=== PATIENT | male | born 1980 | race African-American/Black ===

== ENCOUNTER 2018-05-03 21:52 | Emergency (ER) | payer SELFPAY ==
[~2018-05-03] VITALS: Ht 193 cm; Wt 120.2 kg
--- NOTE | 2018-05-03 22:34 | NUR ---
Pt asleep in bed, tachycardic w/ resp even & unlabored, hypoxic on RA, placed on 2 l/min O2 via NC on continuous pulse-ox w/ cardiac monitoring. pt at bedside.
--- NOTE | 2018-05-03 23:11 | NUR ---
pt states pt feeling better, requesting to go home at this time. pt resp even & unlabored, ambulatory w/ steady gait w/ nad noted. Patient discharged to home in stable condition. Verbal after care instructions given. Patient & verbalizes understanding of instruction.
[2018-05-03 23:12] VITALS: BP 133/67
== END 2018-05-03 23:14 | disposition home or self-care (01) ==
LOC: ER 21:55
DX: F12.10 Cannabis abuse, uncomplicated (principal); Z91.011 Allergy to milk products
CPT/HCPCS: 82962 ×2; 99283; A4606; Z7610